=== PATIENT | male | born 1985 | race Caucasian/White ===

== ENCOUNTER 2017-09-11 17:05 | Inpatient (IN) | payer OTHER ==
[~2017-09-11] VITALS: Ht 167.6 cm; Wt 88.9 kg
[2017-09-11 17:15] VITALS: BP 154/96; PULSE 102; RESP 17; TEMP 101.3; O2SAT 99
--- NOTE | 2017-09-11 17:44 | PD ---
HPI Chief Complaint: Fall Time Seen by Provider: 17:17 Travel History International Travel<30 days: No Contact w/Intl Traveler<30days: No Traveled to known affect area: No History of Present Illness HPI Patient's 32-year-old male presents emergency department for evaluation trauma transfer. Patient was accepted by Dr. Gallagher apparently having a fall from a roof and having L1 fracture. Patient is Gambian only speaker but with translators in the room and my broken Gambian was able to determine that he does hurting his back is not having any numbness and tingling in his feet and is able to move all of his toes. Denies any chest pain shortness of breath abdominal pain or other symptoms. Review of outside records shows that the patient did have a CAT scan of his abdomen and pelvis as well as lumbar spine film. The latter didn't show a comminuted L1 body fracture with some retropulsion of elements. No internal injuries are noted on the official read is provided by transferring hospital. Symptoms are mild, low back, no radiation , context as above. PFSH Past Medical History Medical History: Denies Significant Hx Diminished Hearing: No Tetanus Vaccination: > 5 Years Influenza Vaccination: No Past Surgical History Surgical History: No Previous Surgery Social History Alcohol Use: Yes Tobacco Use: No Substance Use: No Allergies-Medications (Allergen,Severity, Reaction): Coded Allergies: No Known Allergies (Verified Allergy, Unknown, 09/11/17) Reported Meds & Prescriptions Reported Meds & Active Scripts Active No Active Prescriptions or Reported Medications Review of Systems Except as stated in HPI: all other systems reviewed are Neg Physical Exam Narrative GENERAL: Well-developed well-nourished no obvious distress. SKIN: Focused skin assessment warm/dry. HEAD: Atraumatic. Normocephalic. EYES: Pupils equal and round. No scleral icterus. No injection or drainage. ENT: No nasal bleeding or discharge. Mucous membranes pink and moist. NECK: Trachea midline. No JVD. CARDIOVASCULAR: Regular rate and rhythm. No murmur appreciated. RESPIRATORY: No accessory muscle use. Clear to auscultation. Breath sounds equal bilaterally. GASTROINTESTINAL: Abdomen soft, non-tender, nondistended. Hepatic and splenic margins not palpable. MUSCULOSKELETAL: No obvious deformities. No clubbing. No cyanosis. No edema. Examination of his posterior elements was deferred, Dr. Gallagher is in route. NEUROLOGICAL: Awake and alert. No obvious cranial nerve deficits. Motor grossly within normal limits. Normal speech. Patient able to follow commands in all 4 extremities no numbness or tingling noted. PSYCHIATRIC: Appropriate mood and affect; insight and judgment normal. Data Data Last Documented VS Vital Signs Date Time Temp Pulse Resp B/P (MAP) Pulse Ox O2 Delivery O2 Flow Rate FiO2 09/11/17 17:15 102 17 99 Room Air 09/11/17 17:15 101.3 154/96 (115) Orders Orders Consult Mark Gts (09/11/17 ) Admit To Inpatient (09/11/17 ) Vital Signs (Adult) TERESA.QSHIFT (09/11/17 17:42) Intake + Output TERESA.Q8H (09/11/17 17:42) Resp Pulse Oximetry (09/11/17 ) Neuro Checks TERESA.Q1H (09/11/17 17:42) Activity Bed Rest (09/11/17 17:42) Diet Npo (09/11/17 Dinner) Scd / Shai / Foot Pump TERESA.QSHIFT (09/11/17 17:42) Resp Incentive Spirometry (09/11/17 ) Instruction (09/11/17 17:42) Complete Blood Count With Diff (09/12/17 06:00) Basic Metabolic Panel (Bmp) (09/12/17 06:00) Chest, Single Ap (09/12/17 ) Sodium Chlor 0.9% 1000 Ml Inj (Ns 1000 M (09/11/17 18:00) Sodium Chloride 0.9% Flush (Ns Flush) (09/11/17 17:45) Hydromorphone Pf Inj (Dilaudid Pf Inj) (09/11/17 17:45) Acetamin-Hydrocod 325-5 Mg ([place] 5-325 (09/11/17 17:45) Acetamin-Hydrocod 325-5 Mg ([place] 5-325 (09/11/17 17:45) Enalaprilat Inj (Vasotec Inj) (09/11/17 17:45) Ondansetron Inj (Zofran Inj) (09/11/17 17:45) Pantoprazole Inj (Protonix Inj) (09/11/17 18:00) Multivitamin Inj (Mvi-12 Inj)... (09/11/17 20:00) Consult Pt Eval & Treat (09/11/17 17:42) Docusate Sodium (Colace) (09/11/17 21:00) Consult Neurosurgery (09/11/17 ) ^ Initiate Protocol (09/11/17 17:42) Instruction (09/11/17 17:42) Misc Nursing Information (09/11/17 17:45) Chlorhexidine 2% Cloth (Chlorhexidine 2% (09/12/17 04:00) Chlorhexidine 2% Cloth (Chlorhexidine 2% (09/11/17 17:45) Mrsa Pcr Surveillance (09/11/17 17:42) Inpatient Certification (09/11/17 ) Influenzae A/B Antigen (09/11/17 17:58) Consult Neurosurgery (09/11/17 ) Admit Order (Ed Use Only) (09/11/17 ) MDM Medical Decision Making Medical Screen Exam Complete: Yes Emergency Medical Condition: Yes Differential Diagnosis L1 fracture, fall, sciatica, degenerative disc disease. Narrative Course Patient roomed in the emergency department, was discussed with Dr. Gallagher and Dr. Casas by me, the latter agrees to the patient's fracture will be surgical. He was admitted to the hospital by Dr. Gallagher. He was also found to be febrile in the emergency department and has had some mild flulike symptoms of flu test was ordered by me and the patient had a chest x-ray ordered by Dr. Gallagher. Flu test was negative and possibly falsely negative or consider viral syndrome. Further management by Dr. Gallagher. Diagnosis Primary Impression: L1 vertebral fracture Qualified Codes: S32.019A - Unspecified fracture of first lumbar vertebra, initial encounter for closed fracture Admitting Information Admitting Physician Requests: Admit Scripts No Active Prescriptions or Reported Meds Condition: Rodney Roman MD Sep 11, 2017 17:44
[2017-09-11] MEDS ORDERED: ENALAPRILAT 1.25 MG/ML VIAL IV PUSH PRN (17:45)
[2017-09-11] MEDS ORDERED: ACETAMINOPHEN/HYDROcodone 325 MG/5 MG TAB PO PRN ×2 (17:45)
[2017-09-11] MEDS ORDERED: ONDANSETRON HCL 4 MG/2 ML VIAL IV PUSH PRN (17:45)
[2017-09-11] MEDS ORDERED: MISCELLANEOUS NURSING INFORMATION XX SCH (17:45)
[2017-09-11] MEDS ORDERED: SODIUM CHLORIDE 0.9% FLUSH 10 ML FLUSH IV FLUSH PRN (17:45)
[2017-09-11] MEDS ORDERED: CHLORHEXIDINE GLUCONATE 2 % 1 PACK (2 CLOTHS) TOP PRN (17:45)
[2017-09-11] MEDS ORDERED: HYDROmorphone HCL PF 1 MG/ML VIAL IVP PRN (17:45)
[2017-09-11] MEDS ORDERED: PANTOPRAZOLE SODIUM 40 MG VIAL IVP SCH (18:00)
[2017-09-11] MEDS: SODIUM CHLOR 0.9% 1000 ML INJ 1,000 ML IV SCH (18:05)
[2017-09-11 19:46] VITALS: BP 165/97; PULSE 108; RESP 18; O2SAT 96
--- NOTE | 2017-09-11 19:53 | PD.CONS ---
History of Present Illness Service Neurosurgery Consult Requested By General surgery trauma service Reason for Consult L1 fracture Primary Care Physician No Primary Care Physician Diagnoses: History of Present Illness 32-year-old male transferred from [facility] is a trauma patient. He was noted to have a L1 fracture on CT scan of the lumbar spine prior to transfer. The patient complains of thoracolumbar pain. No significant neck or lower lumbar pain. No complaint of pain which is or numbness in the extremities. No complaint of bowel or bladder dysfunction. Past Family Social History Allergies: Coded Allergies: No Known Allergies (Verified Allergy, Unknown, 09/11/17) Physical Exam Vital Signs Vital Signs Date Time Temp Pulse Resp B/P (MAP) Pulse Ox O2 Delivery O2 Flow Rate FiO2 09/11/17 17:15 102 17 99 Room Air 09/11/17 17:15 101.3 102 17 154/96 (115) 99 Physical Exam GENERAL: This is a well-nourished, well-developed patient, no apparent distress. SKIN: No abrasions, contusion, rash noted. Skin warm and dry. HEAD: Atraumatic. Normocephalic. No temporal or scalp tenderness. EYES: Sclerae are clear and nonicteric ENT: No facial edema or ecchymosis. No periorbital edema. No CSF otorrhea or rhinorrhea. No palpable facial fracture or deformity. NECK: Trachea midline. No cervical spine tenderness. CARDIOVASCULAR: Regular rate and rhythm without murmurs, gallops, or rubs. RESPIRATORY: Clear to auscultation. Breath sounds equal bilaterally. No wheezes , rales, or rhonchi. GASTROINTESTINAL: Abdomen soft, non-tender, nondistended. No hepato-splenomegaly , or palpable masses. No guarding. MUSCULOSKELETAL: Extremities without cyanosis, or edema. No joint tenderness, or edema noted. No calf tenderness. Dorsalis pedis pulses 2+ bilateral Significant tenderness to palpation over the thoracolumbar midline. No significant neck or lumbosacral tenderness. NEUROLOGICAL: Awake and alert Oriented X 3 Speech is clear Conversant and appropriate Follow simple commands well Answers questions appropriately Reasonable judgment and insight Recent and remote memory are intact No evidence of anxiety or depression Pupils are equal and reactive to accommodation. Extra-ocular movements, visual skaggs to confrontation, facial sensorimotor, tongue, palate, sternocleidomastoid testing, hearing to finger rub testing, and bilateral shoulder shrug are all intact. Sensation is intact to light touch in all extremities Strength normal major flexion and extension groups all extremities Savanna's absent bilaterally No ankle clonus Plantar responses absent bilateral Fine motor movements intact upper extremities Laboratory Date/Time Source Procedure Growth Status 09/11/17 18:00 Nasal Aspirate Influenza Types A,B Antigen (MATTHEW) - Final NEGATIVE FOR FLU A AND B ANTIGEN.... Complete Imaging 09/11/2017 CT scan lumbar spine [facility] images are reviewed with the patient and family today. The study reveals a coronal L1 vertebral body fracture at the mid to anterior vertebral body. There is severe loss of T12-L1 vertebral body height. Minimal approximately 2-3 mm retropulsion of the superior L1 vertebral body without significant overall canal compromise. There is significant displacement of the anterior fragment. The posterior column structures appear intact without significant displacement of the facet and no separation of the interspinous ligament. Assessment and Plan Assessment and Plan Impression: 1. Primarily coronal L1 vertebral fracture with significant separation of the anterior fragment. This is accompanied by mild retropulsion of the posterior superior L1 body into the canal, loss of intervertebral disc height, and mild increased kyphosis. Although the posterior structures are intact, the severity of the anteriorly displaced fragment raises concern for progressive kyphosis with conservative treatment. Recommendations: The findings were discussed with the patient and family in the emergency room and the CT scan images reviewed. We will attempt to mobilize him in a TLSO brace, monitor his pain level and neurologic function, and check a follow-up x-ray of the thoracolumbar spine in upright position. I advised him that depending on his clinical course and follow-up imaging studies, surgical intervention should be considered to avoid progressive deformity. Ferdinand Casas MD Sep 11, 2017 19:53
[2017-09-11] MEDS ORDERED: MULTIVITAMIN INJ 10 ML, THIAMINE INJ 100 MG, FOLIC ACID INJ 1 MG in SODIUM CHLORID 0.9%... IV SCH (20:00)
[2017-09-11] MEDS ORDERED: DOCUSATE SODIUM 100 MG CAP PO SCH (21:00)
[2017-09-11] MEDS ORDERED: MULTIVITAMIN INJ 10 ML, THIAMINE INJ 100 MG in SODIUM CHLORID 0.9% 500 ML INJ 500 ML IV SCH (21:00)
[2017-09-11 21:18] VITALS: BP 151/89; PULSE 98; RESP 18; TEMP 98.8; O2SAT 95
--- NOTE | 2017-09-11 22:05 | MH ---
cc: ANDREY PIERRE MD DATE OF ADMISSION 09/11/2017 REASON FOR VISIT Non-trauma alert trauma transfer L1 fracture. HISTORY OF PRESENT ILLNESS The patient is a 32-year-old male who presented after transfer from [facility]. The patient was evidently at a job site with harness on, however, the rope was too long and the patient was working approximately 8 feet up and is status post fall. The patient landed on his back. Denies any loss of consciousness. Complains of some back pain mid section. He came to originally at [facility] with further workup following the L1 vertebral fracture. Therefore decision was made for transfer to [place] for further management and evaluation. On my exam the patient is noted to be hemodynamically stable en route and currently at the hospital. He states having back pain. He is Comoran speaking only. He denies any neurologic deficits or numbness or tingling. PAST MEDICAL HISTORY The patient has no known medical history. PAST SURGICAL HISTORY No previous surgeries. SOCIAL HISTORY Positive ethyl alcohol. Denies smoking or IVDA. ALLERGIES Denies any known allergies. MEDICATIONS He denies any active medications. FAMILY HISTORY Denies diabetes or hypertension. REVIEW OF SYSTEMS GENERAL: The patient denies. HEENT: Eye pain, ear pain. NECK: Denies swelling or pain. LUNGS: Denies cough, wheeze. HEART: Denies palpitations, chest pain. ABDOMEN: Denies nausea, vomiting or abdominal pain. NEUROLOGIC: Complained of mid back pain, L1 fracture. GENITOURINARY: Denies dysuria, hematuria. ENDOCRINE: Denies polyuria, polydipsia. PHYSICAL EXAMINATION GENERAL: The patient no acute distress. VITAL SIGNS: Temperature 101.3, pulse 102, respirations 17, blood pressure 154/96. Saturation 99%. HEAD, EYES, EARS, NOSE, AND THROAT: PERRLA, pupils equal round reactive. NECK: Supple. Trachea midline. LUNGS: Bilateral expansion. Clear. CARDIOVASCULAR: Heart S1-S2 regular. ABDOMEN: Soft and nontender. Nondistended. EXTREMITIES: Warm and well perfused. NEUROLOGIC: GCS of 15. 5/5 motor all extremities. No numbness or tingling. Cranial nerves intact. PSYCHIATRIC: Appropriate mood and insight. INTEGUMENTARY: No obvious masses or lesions other than abrasions. BACK: No step off. However, tenderness to palpation lower mid back. LABORATORY AND DIAGNOSTIC DATA Sodium 141, potassium 4.3, chloride is 102, BUN is 15, creatinine 0.6. Platelets 157, WBC 14.2, hematocrit 14.6, platelets 201. INR 1.0. IMAGING CT scans reviewed by myself showing T12-L1 body fracture, mild canal stenosis, 2-mm retropulsion. CT scans otherwise negative. ASSESSMENT The patient is 32-year-old male who presents status post fall with severe spinal injury including T12-L1 vertical body. PLAN After full clinical, radiologic, laboratory workup the patient with above-named issues. At this point discussed with Dr. Casas for neurologic evaluation with recommendation for surgery. At this point we will keep the patient flat, long roll only. Attempt to obtain a TLSO brace. Continue q.1 neurologic assessments and exams and continue to watch the patient for any evidence of ongoing injury. Discussed with the patient in detail. He states he understands. The patient will be n.p.o. IV fluids, pain control. MD GIANFRANCO Stevenson/KK /9:35 PM /9:48 PM
[2017-09-11] MEDS: FOLIC ACID 1 MG TAB PO SCH (22:46)
[2017-09-12 01:05] VITALS: BP 135/78; PULSE 99; RESP 18; TEMP 97.8; O2SAT 96
[2017-09-12] MEDS: SODIUM CHLOR 0.9% 1000 ML INJ 1,000 ML IV SCH ×2 (04:00→11:33)
[2017-09-12] MEDS: CHLORHEXIDINE GLUCONATE 2 % 1 PACK (2 CLOTHS) TOP SCH (04:00)
[2017-09-12 06:18] VITALS: BP 142/91; PULSE 96; RESP 18; TEMP 97.9; O2SAT 94
--- NOTE | 2017-09-12 07:43 | RADRPT ---
EXAM DATE/TIME: 09/12/2017 06:45 [facility] COMPARISON: No previous studies available for comparison. INDICATIONS : Pain in chest and back MEDICAL HISTORY : back fracture SURGICAL HISTORY : None. ENCOUNTER: Initial ACUITY: 1 day PAIN SCORE: 10/10 LOCATION: Bilateral chest FINDINGS: A single view of the chest demonstrates the lungs to be symmetrically aerated without evidence of mas s, infiltrate or effusion. The cardiomediastinal contours are unremarkable. Osseous structures are intact. CONCLUSION: No acute disease. Pete Wade Jr., MD on September 12, 2017 at 7:41 Board Certified Radiologist. This report was verified electronically.
[2017-09-12 07:50] LABS: AUTOMATED NEUTROPHIL # 6.5 TH/MM3 (1.8-7.7); BASOPHIL % 0.4 % (0.0-2.0); EOSINOPHIL # 0.1 TH/MM3 (0-0.4); EOSINOPHIL % 1.3 % (0.0-4.0); HEMATOCRIT 41.8 % (39.0-51.0); HEMO FLAGS DIFF FINAL; LYMPH % 16.1 % (9.0-44.0); LYMPHOCYTE # 1.4 TH/MM3 (1.0-4.8); MEAN CELL VOLUME 87.3 FL (80.0-100.0); MEAN CORPUSCULAR HEMOGLOBIN 29.3 PG (27.0-34.0); MEAN CORPUSCULAR HGB CONC 33.5 % (32.0-36.0); MONO % 6.8 % (0.0-8.0); NEUT % 75.4 % (16.0-70.0); PLATELET COUNT 183 TH/MM3 (150-450); RED BLOOD COUNT 4.78 MIL/MM3 (4.50-5.90); RED CELL DISTRIBUTION WIDTH 13.2 % (11.6-17.2); WHITE BLOOD COUNT 8.7 TH/MM3 (4.0-11.0)
[2017-09-12 08:23] LABS: BICARBONATE 27.7 MEQ/L (21.0-32.0); POTASSIUM 4.1 MEQ/L (3.5-5.1)
[2017-09-12 08:25] VITALS: BP 139/94; PULSE 99; RESP 20; TEMP 98.9; O2SAT 97
[2017-09-12] MEDS ORDERED: LACTULOSE SYRUP 20 GM/30 ML CUP PO PRN (08:45)
[2017-09-12] MEDS ORDERED: REMOVE OLD LIDOCAINE PATCH T-DERMAL SCH ×2 (09:00→21:00)
[2017-09-12] MEDS: LIDOCAINE HCL 5% PATCH T-DERMAL SCH (10:49)
[2017-09-12] MEDS: DOCUSATE SODIUM 50 MG/SENNA 8.6 MG TAB PO SCH ×2 (10:49→21:13)
[2017-09-12] MEDS: METHOCARBAMOL 500 MG TAB PO SCH ×2 (10:49→17:13)
--- NOTE | 2017-09-12 11:31 | HHI.NSPN ---
(Vinod Farnsworth) History Chief Complaint: A little low back pain. (Vinod Farnsworth) Interval History 09/11: 32-year-old male transferred from [facility] is a trauma patient. He was noted to have a L1 fracture on CT scan of the lumbar spine prior to transfer. The patient complains of thoracolumbar pain. No significant neck or lower lumbar pain. No complaint of pain which is or numbness in the extremities. No complaint of bowel or bladder dysfunction. 09/12: The patient is awake and talking on the phone when seen this morning. He says he has a little pain to the mid low back. He denies any pain, numbness or tingling to the extremities. (Vinod Farnsworth) System Review Comments MUSCULOSKELETAL: A little low back pain. (Vinod Farnsworth) Exam Results Vital Signs Date Time Temp Pulse Resp B/P (MAP) Pulse Ox O2 Delivery O2 Flow Rate FiO2 09/12/17 08:25 98.9 99 20 139/94 (109) 97 09/12/17 06:18 97.9 96 18 142/91 (108) 94 09/12/17 01:05 97.8 99 18 135/78 (97) 96 09/11/17 21:18 98.8 98 18 151/89 (109) 95 09/11/17 20:40 09/11/17 19:46 108 18 165/97 (119) 96 Room Air 09/11/17 17:15 102 17 99 Room Air 09/11/17 17:15 101.3 102 17 154/96 (115) 99 (Vinod Farnsworth) Physical Examination GENERAL: Awake & alert, readily interacts, normal affect, no apparent distress. SKIN: Warm, dry & intact w/o any evident rashes, ulcerations or other lesions. NECK: Midline cervical spine NTTP, active ROM w/o any pain, no JVD, trachea midline. MUSCULOSKELETAL: COSTELLO w/o difficulty, no evident deformity or clubbing, NTTP. Mildly TTP at the thoracolumbar junction midline o/w thoracolumbar spine NTTP. NEUROLOGICAL: AAOx3. Speech clear & appropriate. Follows simple commands w/o difficulty. Sensation intact to light touch to both lower extremities. Motor strength 5/5 to all major flexion & extension muscle groups to BLE. No pain w/straight leg lifts. (Vinod Farnsworth) Lab, Micro, Other Results Recent Impressions Chest X-Ray 09/12/17 0000 Signed Impressions: Service Date/Time: August 06:45 - CONCLUSION: No acute disease. Pete Wade Jr., MD Laboratory Tests Test 09/12/17 06:24 09/12/17 06:26 White Blood Count 8.7 TH/MM3 Red Blood Count 4.78 MIL/MM3 Hemoglobin 14.0 GM/DL Hematocrit 41.8 % Mean Corpuscular Volume 87.3 FL Mean Corpuscular Hemoglobin 29.3 PG Mean Corpuscular Hemoglobin Concent 33.5 % Red Cell Distribution Width 13.2 % Platelet Count 183 TH/MM3 Mean Platelet Volume 8.4 FL Neutrophils (%) (Auto) 75.4 % Lymphocytes (%) (Auto) 16.1 % Monocytes (%) (Auto) 6.8 % Eosinophils (%) (Auto) 1.3 % Basophils (%) (Auto) 0.4 % Neutrophils # (Auto) 6.5 TH/MM3 Lymphocytes # (Auto) 1.4 TH/MM3 Monocytes # (Auto) 0.6 TH/MM3 Eosinophils # (Auto) 0.1 TH/MM3 Basophils # (Auto) 0.0 TH/MM3 CBC Comment DIFF FINAL Differential Comment Blood Urea Nitrogen 17 MG/DL Creatinine 0.74 MG/DL Random Glucose 122 MG/DL Calcium Level 8.6 MG/DL Sodium Level 138 MEQ/L Potassium Level 4.1 MEQ/L Chloride Level 104 MEQ/L Carbon Dioxide Level 27.7 MEQ/L Anion Gap 6 MEQ/L Estimat Glomerular Filtration Rate 124 ML/MIN (Vinod Farnsworth) Medical Decision Making Impression and Plan Impression: 1. Primarily coronal L1 vertebral fracture with significant separation of the anterior fragment. This is accompanied by mild retropulsion of the posterior superior L1 body into the canal, loss of intervertebral disc height, and mild increased kyphosis. Although the posterior structures are intact, the severity of the anteriorly displaced fragment raises concern for progressive kyphosis with conservative treatment. Patient is doing well and pain to the lower back is well mild. No neurological deficits to the lower extremities. Plan: Discussed the plan of care with the patient. TLSO brace. Mobilise patient w/assistance in the TLSO brace. PT eval & tx. Will obtain standing thoracolumbar spine AP & lateral x-rays when patient is able to stand. (Vinod Farnsworth) Attending Statement The exam, history, and the medical decision-making described in the above note were completed with the assistance of the mid-level provider. I reviewed and agree with the findings presented. I attest that I had a [id number] encounter with the patient on the same day, and personally performed and documented my assessment and findings in the medical record. The patient has tolerated ambulating with the brace on relatively well today, walking over 400 feet with therapy with 3-4/10 severity pain. The standing thoracolumbar x-rays reveal stability of the fracture with weightbearing. We will discuss findings further with the patient. Anticipate that he will elect conservative treatment initially. He can follow with outpatient x-rays in the next 10-14 days. (Ferdinand Casas MD) Vinod Farnsworth Sep 12, 2017 11:31 Ferdinand Casas MD Sep 12, 2017 23:59
[2017-09-12 12:00] VITALS: BP 143/98; PULSE 107; RESP 20; TEMP 98; O2SAT 96
--- NOTE | 2017-09-12 12:09 | HHI.PR ---
Subjective Subjective Notes Has not been OOB yet Complains of back pain Objective Vitals/I&O Vital Signs Date Time Temp Pulse Resp B/P (MAP) Pulse Ox O2 Delivery O2 Flow Rate FiO2 09/12/17 08:25 98.9 99 20 139/94 (109) 97 09/11/17 19:46 Room Air Labs Laboratory Tests Test 09/12/17 06:24 09/12/17 06:26 White Blood Count 8.7 Red Blood Count 4.78 Hemoglobin 14.0 Hematocrit 41.8 Mean Corpuscular Volume 87.3 Mean Corpuscular Hemoglobin 29.3 Mean Corpuscular Hemoglobin Concent 33.5 Red Cell Distribution Width 13.2 Platelet Count 183 Mean Platelet Volume 8.4 Neutrophils (%) (Auto) 75.4 Lymphocytes (%) (Auto) 16.1 Monocytes (%) (Auto) 6.8 Eosinophils (%) (Auto) 1.3 Basophils (%) (Auto) 0.4 Neutrophils # (Auto) 6.5 Lymphocytes # (Auto) 1.4 Monocytes # (Auto) 0.6 Eosinophils # (Auto) 0.1 Basophils # (Auto) 0.0 CBC Comment DIFF FINAL Differential Comment Blood Urea Nitrogen 17 Creatinine 0.74 Random Glucose 122 Calcium Level 8.6 Sodium Level 138 Potassium Level 4.1 Chloride Level 104 Carbon Dioxide Level 27.7 Anion Gap 6 Estimat Glomerular Filtration Rate 124 Date/Time Source Procedure Growth Status 09/11/17 18:00 Nasal Aspirate Influenza Types A,B Antigen (MATTHEW) - Final NEGATIVE FOR FLU A AND B ANTIGEN.... Complete Radiology Last Impressions Chest X-Ray 09/12/17 0000 Signed Impressions: Service Date/Time: August 06:45 - CONCLUSION: No acute disease. Pete Wade Jr., MD Narrative Exam GENERAL: 32 year old well-nourished, well developed male lying in bed. SKIN: Warm and dry. HEAD: Normocephalic. EYES: PERRL. ENT: No nasal bleeding or discharge. Mucous membranes pink and moist. NECK: Trachea midline. No JVD. CARDIOVASCULAR: Regular rate and rhythm. RESPIRATORY: No accessory muscle use. Lungs clear to auscultation. Breath sounds equal bilaterally. GASTROINTESTINAL: Abdomen soft, non-tender, nondistended. + BS. MUSCULOSKELETAL: Extremities without cyanosis, or edema. MAEW. + perfused NEUROLOGICAL: Awake and alert. Normal speech. A/P Assessment and Plan Fell off a ladder approximately 8 feet. No LOC. Transferred from [facility] for Trauma services. INJURIES: L1 fx with mild retropulsion Diet: Regular Pulm: IS Pain: [place], Dilaudid IV. Robaxin, Lidoderm patch Activity: OOB. PT ordered. (TLSO) Bowel: Jennifer-colace 2 tab. PRN Lactulose. LBM 0 DVT: SCDs L1 fx with mild retropulsion Neurosurgery consulted Nonoperative management OOB with TLSO brace Pain control PT ordered Plan of care discussed with patient at bedside. Case management consulted to assist with discharge planning. Jose Briceno Sep 12, 2017 12:09
[2017-09-12 16:00] VITALS: BP 144/94; PULSE 100; RESP 20; TEMP 99.4; O2SAT 100
--- NOTE | 2017-09-12 17:58 | RADRPT ---
EXAM DATE/TIME: 09/12/2017 17:41 [facility] COMPARISON: CHEST SINGLE AP, September 12, 2017, 6:45. INDICATIONS : Evaluate L1 coronal fracture. MEDICAL HISTORY : Back fracture. SURGICAL HISTORY : None. ENCOUNTER: Initial ACUITY: 1 day PAIN SCORE: 8/10 LOCATION: Bilateral L-spine FINDINGS: The examination demonstrates a fracture of the L1 vertebral body. There is compression of the superio r endplate with a vertical component through the anterior aspect of the vertebral body. There is mild displacement of the anterior aspect of the vertebral body. There is slight kyphotic deformity. There is no bony retropulsion. The remainder the visualized vertebral bodies are intact. CONCLUSION: 1. Fracture of the L1 vertebral body as above. Kevan Lujan MD on September 12, 2017 at 17:56 Board Certified Radiologist. This report was verified electronically.
--- NOTE | 2017-09-12 17:59 | RADRPT ---
EXAM DATE/TIME: 09/12/2017 17:42 [facility] COMPARISON: SPINE LUMBAR LTD (AP & LAT), September 12, 2017, 17:41. INDICATIONS : Evaluate L1 coronal fracture MEDICAL HISTORY : Back fracture SURGICAL HISTORY : None. ENCOUNTER: Initial ACUITY: 1 day PAIN SCORE: 8/10 LOCATION: Bilateral T-spine FINDINGS: There is normal alignment of the thoracic vertebral bodies. Vertebral body height is maintained. No evidence of fracture or subluxation. Pedicles are intact at all levels. The paravertebral reflecti ons are not thickened. CONCLUSION: 1. No acute fracture of the thoracic spine is identified. Kevan Lujan MD on September 12, 2017 at 17:57 Board Certified Radiologist. This report was verified electronically.
[2017-09-12] MEDS: FOLIC ACID 1 MG TAB PO SCH (21:13)
[2017-09-12 21:19] VITALS: BP 157/99; PULSE 99; RESP 20; TEMP 99; O2SAT 99
[2017-09-13 01:32] VITALS: BP 138/91; PULSE 96; RESP 18; TEMP 98; O2SAT 97
[2017-09-13] MEDS: METHOCARBAMOL 500 MG TAB PO SCH ×2 (01:49→09:12)
[2017-09-13] MEDS: CHLORHEXIDINE GLUCONATE 2 % 1 PACK (2 CLOTHS) TOP SCH (04:00)
[2017-09-13 05:59] VITALS: BP 137/91; PULSE 88; RESP 18; TEMP 98.2; O2SAT 97
[2017-09-13 08:00] VITALS: BP 137/90; PULSE 88; RESP 20; TEMP 97.9; O2SAT 97
[2017-09-13] MEDS: DOCUSATE SODIUM 50 MG/SENNA 8.6 MG TAB PO SCH (09:12)
[2017-09-13] MEDS: LIDOCAINE HCL 5% PATCH T-DERMAL SCH (09:28)
--- NOTE | 2017-09-13 09:35 | HHI.NSPN ---
History Interval History 09/11: 32-year-old male transferred from [facility] is a trauma patient. He was noted to have a L1 fracture on CT scan of the lumbar spine prior to transfer. The patient complains of thoracolumbar pain. No significant neck or lower lumbar pain. No complaint of pain which is or numbness in the extremities. No complaint of bowel or bladder dysfunction. 09/12: The patient is awake and talking on the phone when seen this morning. He says he has a little pain to the mid low back. He denies any pain, numbness or tingling to the extremities. 09/13: This morning the patient is seen in rounds with Dr Casas. He is up and ambulating in the room with the TLSO brace on. He went for standing x-rays of the thoracolumbar spine yesterday. The undersigned acts as a scribe for the remainder of this note. Exam Results 09/11/17 09/11/17 09/12/17 09/12/17 09/13/17 09/13/17 06:00 18:00 06:00 18:00 06:00 18:00 Intake Total 480 ml Balance 480 ml Intake Oral 480 ml # Voids 3 Vital Signs Date Time Temp Pulse Resp B/P (MAP) Pulse Ox O2 Delivery O2 Flow Rate FiO2 09/13/17 05:59 98.2 88 18 137/91 (106) 97 09/13/17 01:32 98.0 96 18 138/91 (107) 97 09/12/17 21:19 99.0 99 20 157/99 (118) 99 09/12/17 16:00 99.4 100 20 144/94 (111) 100 09/12/17 12:00 98.0 107 20 143/98 (113) 96 09/12/17 08:25 98.9 99 20 139/94 (109) 97 09/12/17 06:18 97.9 96 18 142/91 (108) 94 09/12/17 01:05 97.8 99 18 135/78 (97) 96 11/15/17 21:18 98.8 98 18 151/89 (109) 95 09/11/17 20:40 09/11/17 19:46 108 18 165/97 (119) 96 Room Air 09/11/17 17:15 102 17 99 Room Air 09/11/17 17:15 101.3 102 17 154/96 (115) 99 Physical Examination GENERAL: Awake & alert, readily interacts, normal affect, no apparent distress. MUSCULOSKELETAL: COSTELLO w/o difficulty. TLSO brace in place. NEUROLOGICAL: AAOx3. Speech clear & appropriate. Motor strength appears good. Gait steady. Lab, Micro, Other Results Recent Impressions Thoracic Spine X-Ray 09/12/17 0000 Signed Impressions: Service Date/Time: August 17:42 - CONCLUSION: 1. No acute fracture of the thoracic spine is identified. Kevan Lujan MD Lumbar Spine X-Ray 09/12/17 0000 Signed Impressions: Service Date/Time: August 17:41 - CONCLUSION: 1. Fracture of the L1 vertebral body as above. Kevan Lujan MD Chest X-Ray 09/12/17 0000 Signed Impressions: Service Date/Time: August 06:45 - CONCLUSION: No acute disease. Pete Wade Jr., MD Laboratory Tests Test 09/12/17 06:24 09/12/17 06:26 White Blood Count 8.7 TH/MM3 Red Blood Count 4.78 MIL/MM3 Hemoglobin 14.0 GM/DL Hematocrit 41.8 % Mean Corpuscular Volume 87.3 FL Mean Corpuscular Hemoglobin 29.3 PG Mean Corpuscular Hemoglobin Concent 33.5 % Red Cell Distribution Width 13.2 % Platelet Count 183 TH/MM3 Mean Platelet Volume 8.4 FL Neutrophils (%) (Auto) 75.4 % Lymphocytes (%) (Auto) 16.1 % Monocytes (%) (Auto) 6.8 % Eosinophils (%) (Auto) 1.3 % Basophils (%) (Auto) 0.4 % Neutrophils # (Auto) 6.5 TH/MM3 Lymphocytes # (Auto) 1.4 TH/MM3 Monocytes # (Auto) 0.6 TH/MM3 Eosinophils # (Auto) 0.1 TH/MM3 Basophils # (Auto) 0.0 TH/MM3 CBC Comment DIFF FINAL Differential Comment Blood Urea Nitrogen 17 MG/DL Creatinine 0.74 MG/DL Random Glucose 122 MG/DL Calcium Level 8.6 MG/DL Sodium Level 138 MEQ/L Potassium Level 4.1 MEQ/L Chloride Level 104 MEQ/L Carbon Dioxide Level 27.7 MEQ/L Anion Gap 6 MEQ/L Estimat Glomerular Filtration Rate 124 ML/MIN Medical Decision Making Impression and Plan The Impression & Plan are carried forward from the note of except for updating the POD #, deletion of the authors daily impression and as Added, Deleted, Modified or New Order. Impression: 1. Primarily coronal L1 vertebral fracture with significant separation of the anterior fragment. This is accompanied by mild retropulsion of the posterior superior L1 body into the canal, loss of intervertebral disc height, and mild increased kyphosis. Although the posterior structures are intact, the severity of the anteriorly displaced fragment raises concern for progressive kyphosis with conservative treatment. Plan: Discussed the plan of care, to include activity/work restrictions, x-rays and office follow up, with the patient & spouse via video manufacturing assembler (Lane, # [id number]). (Modified) TLSO brace. Mobilise patient w/assistance in the TLSO brace. PT ella & tx. Vinod Farnsworth Sep 13, 2017 09:35
[2017-09-13] MEDS ORDERED: PERI PO (10:27)
[2017-09-13] MEDS ORDERED: METH500T3 PO (10:27)
[2017-09-13] MEDS ORDERED: HYDR-3516 PO (10:27)
[2017-09-13] MEDS ORDERED: BACITRACIN TOP OINT 15 GM TUBE TOPICAL SCH (11:00)
--- NOTE | 2017-09-13 11:06 | HHI.DS ---
Discharge Summary Admission Date Sep 11, 2017 at 18:06 Discharge Date: Sep 13, 2017 Admitting Diagnosis L1 Fracture (1) Fall from ladder ICD Codes: W11.XXXA - Fall on and from ladder, initial encounter (2) L1 vertebral fracture ICD Codes: S32.019A - Unspecified fracture of first lumbar vertebra, initial encounter for closed fracture Status: Acute Brief History S/P Trauma: Fall CBC/BMP: 09/12/17 0624 09/12/17 0626 Significant Findings Laboratory Tests Test 09/12/17 06:24 09/12/17 06:26 Neutrophils (%) (Auto) 75.4 % (16.0-70.0) Random Glucose 122 MG/DL (74-106) Imaging Last Impressions Thoracic Spine X-Ray 09/12/17 0000 Signed Impressions: Service Date/Time: , September 12, 2017 17:42 - CONCLUSION: 1. No acute fracture of the thoracic spine is identified. Kevan Lujan MD Lumbar Spine X-Ray 09/12/17 0000 Signed Impressions: Service Date/Time: August 17:41 - CONCLUSION: 1. Fracture of the L1 vertebral body as above. Kevan Lujan MD Chest X-Ray 09/12/17 0000 Signed Impressions: Service Date/Time: August 06:45 - CONCLUSION: No acute disease. Pete Wade Jr., MD PE at Discharge GENERAL: 32 year old well-nourished, well developed male OOB in chair with TLSO brace on. SKIN: Warm and dry. CARDIOVASCULAR: Regular rate and rhythm. RESPIRATORY: No accessory muscle use. Lungs clear to auscultation. Breath sounds equal bilaterally. GASTROINTESTINAL: Abdomen soft, non-tender, nondistended. + BS. MUSCULOSKELETAL: Extremities without cyanosis, or edema. MAEW. + perfused NEUROLOGICAL: Awake and alert. Normal speech. Hospital Course [place]: Fell off a ladder approximately 8 feet. No LOC. Transferred from [facility] for Trauma services. INJURIES: L1 vertebral body fx L1 fx with mild retropulsion Neurosurgery consulted Nonoperative management OOB with TLSO brace Pain control PT ordered F/U outpatient Plan of care discussed with patient at bedside. Patient is clear from Trauma surgery standpoint to safely discharge home. Pt Condition on Discharge: Stable Discharge Disposition: Discharge Home Discharge Instructions DIET: Follow Instructions for: As Tolerated, No Restrictions Activities you can perform: Weight Bearing as Christopher Activities to Avoid: Concussion Sports, Lifting/Bending, Prolonged Standing, Strenuous Activity Other Activity Instructions: Wear TLSO brace when out of bed Jose Briceno Sep 13, 2017 11:06
--- NOTE | 2017-09-13 11:14 | RADRPT ---
EXAM DATE/TIME: 09/13/2017 10:40 [facility] COMPARISON: SPINE THORACIC AP/LAT/SW (3VW), September 12, 2017, 17:42. INDICATIONS : Trauma. MEDICAL HISTORY : back fracture SURGICAL HISTORY : None. ENCOUNTER: Initial ACUITY: 1 day PAIN SCORE: Non-responsive. LOCATION: Left ankle FINDINGS: Two view exam was performed of the left ankle. The bony structures are in normal alignment. No evid ence of fracture, dislocation, or soft tissue swelling. No radiopaque foreign bodies are seen. Bony mineralization is normal. CONCLUSION: 1. No acute bony abnormality. Kevan Lujan MD on September 13, 2017 at 11:10 Board Certified Radiologist. This report was verified electronically.
== END 2017-09-13 12:56 | disposition home or self-care (01) | DRG 552 ==
LOC: NEPE 17:05 → NEDA 18:06 → N05A 20:46
PROVIDERS: ADMIT Surgery; ATTEND Surgery
DX: S32.019A Unspecified fracture of first lumbar vertebra, initial encounter for closed fracture (principal); W11.XXXA Fall on and from ladder, initial encounter
CPT/HCPCS: 71010; 72072; 72100; 73600; 80048; 85025; 87804; 94150; C9113; J1170; J3411; J7030; J7040; L0200; L0484